=== PATIENT | male | born 1970 | race Caucasian/White ===

== ENCOUNTER 2017-04-13 15:16 | Emergency (ER) | payer OTHER ==
--- NOTE | 2017-04-15 13:13 | ER ---
ADMIT: 04/13/2017 RM/LOC: ER [facility] MR#: [id number] [id number] JENIFFER GREGORIO [address] [place] [address] Emergency Room Report SEX: M AGE: 46 : 1970 DATE: 04/13/2017 HISTORY OF PRESENT ILLNESS: The patient is a 46-year-old male who came to the ER with chief complaint of syncope. Allegedly, the patient was outside and suddenly blacked out and fell and allegedly had 2 minutes of being out of it per the patient. The patient and family states that he did not hit his head on the ground, and he had no trauma. Family and the patient did state that the patient had 2 similar episodes in the past, one in October and one a few months back, and for both episodes, he had multiple tests, CT scan, Holter monitoring, and EEG by the neurologist, power reactor operator, and primary doctor, all of them were negative. All these episodes were similar to this episode. The patient denies any chest pain, shortness of breath, abdominal pain, or visual changes or new numbness or weakness. The patient denies any vertigo too. PHYSICAL EXAMINATION: VITAL SIGNS: The patient has stable vitals. GENERAL: In no pain or distress. HEAD AND NECK: The patient has no nystagmus. Pupils are 3 mm, reactive to light. Trachea is midline. LUNGS: Clear. HEART: Normal heart sounds without any murmurs. ABDOMEN: Soft. NEUROLOGICAL: Grossly normal. EMERGENCY DEPARTMENT COURSE: EKG was negative for any ST or T changes or Q- waves. D-dimer was also negative too. The rest of the lab works were also negative. The patient was observed, did not develop any new symptoms. The patient is stable to be discharged to home and to be followed up by the primary doctor tomorrow morning. The patient acknowledged he understood the plan, agreed with it, and was discharged home. Jose F Reardon MD/ chauncey JOB #: [id number] CC: Jose F Reardon MD, Attending Physician Lucien Spring MD, Family Physician
== END 2017-04-13 18:00 | disposition home or self-care (01) ==
LOC: ER 15:16
DX: R55 Syncope and collapse (principal); I10 Essential (primary) hypertension; Z79.899 Other long term (current) drug therapy